=== PATIENT | male | born 1985 | race Caucasian/White ===

== ENCOUNTER 2019-06-20 10:05 | Emergency (ER) | payer BC ==
[~2019-06-20] VITALS: Ht 170.2 cm; Wt 89.4 kg
[2019-06-20 10:21] VITALS: BP_SYST 126
--- NOTE | 2019-06-20 11:23 | NUR ---
Patient to ER bed 6 to gown for evaluation. Side rails up. Report given to Kallie MCNEILL.
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
--- NOTE | 2019-06-20 11:35 | NUR ---
Dr Chahal at bedside examining patient
[2019-06-20] MEDS ORDERED: LIDOCAINE 1% 10 MG/ML, 20 ML MDV INJ ONE (12:00)
--- NOTE | 2019-06-20 12:10 | NUR ---
Dr. Chahal at bedside to remove foreign body.
[2019-06-20 12:31] VITALS: BP_SYST 124
--- NOTE | 2019-06-20 12:31 | NUR ---
Patient given written and verbal discharge instructions and verbalizes understanding. ER MD discussed with patient the results and treatment provided. Patient in stable condition. ID arm band removed. Patient educated on pain management and to follow up with PMD. Pain Scale 0/10. Opportunity for questions provided and answered. Medication side effect fact sheet provided.
== END 2019-06-20 12:31 | disposition home or self-care (01) ==
LOC: SED 10:05
DX: S71.122A Laceration with foreign body, left thigh, initial encounter (principal); W45.8XXA Other foreign body or object entering through skin, initial encounter; Y93.89 Activity, other specified; Y92.89 Other specified places as the place of occurrence of the external cause; Y99.8 Other external cause status
CPT/HCPCS: 10120; 73552; 99284; J2001